=== PATIENT | male | born 1955 | race Hispanic/Latino ===

== ENCOUNTER 2018-06-07 18:22 | Inpatient (IN) | payer BC, MEDICARE ==
[2018-06-07] MEDS ORDERED: Vancomycin 1 GM 1 GM/250 ML BAG IV STA (19:31)
[2018-06-07] MEDS ORDERED: Cefepime IV 1 gm in Dextrose 1 GM/50 ML BAG IVPB STA (19:32)
[2018-06-07 19:53] LABS: BASO % 0.8 % (0.0-2.0); EOS # 0.7 K/uL (0.0-0.7); EOS % 11.1 % (0.0-4.0); HEMOGLOBIN 14.2 g/dL (12.0-18.0); LYMPH # 1.9 K/uL (1.0-4.3); LYMPH % 31.4 % (20.0-40.0); MEAN CELL VOLUME 92.7 fL (80.0-94.0); MEAN CORPUSCULAR HEMOGLOBIN 31.8 pg (27.0-31.0); MEAN CORPUSCULAR HGB CONC 34.3 g/dL (33.0-37.0); MEAN PLATELET VOLUME 8.9 fL (7.2-11.7); MONO # 0.6 K/uL (0.0-0.8); NEUT # 2.9 K/uL (1.8-7.0); NEUT % 47.7 % (50.0-75.0); NRBC % 0.3 % (0.0-2.0); RBC 4.45 Mil/uL (4.40-5.90); RED CELL DISTRIBUTION WIDTH 13.1 % (11.5-14.5); WHITE BLOOD COUNT 6.1 K/uL (4.8-10.8)
[2018-06-07] MEDS ORDERED: Vancomycin 1 GM 1 GM/250 ML BAG IVPB ONE (20:03)
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
[2018-06-07 20:06] LABS: ALB/GLOB RATIO 1.6 (1.0-2.1); ALBUMIN 3.9 g/dL (3.5-5.0); ALT/SGPT 137 U/L (21-72); AST/SGOT 93 U/L (17-59); BLOOD UREA NITROGEN 12 mg/dL (9-20); GFR NON-AFRICAN AMERICAN > 60
[2018-06-07 20:07] LABS: VENOUS BLOOD GAS PCO2 44 mmHg (40-60); VENOUS BLOOD GAS PO2 52 mm/Hg (30-55)
[2018-06-08] MEDS: Cefepime IV 1 gm in Dextrose 1 GM/50 ML BAG IVPB SCH ×2 (09:03→21:42)
[2018-06-08] MEDS: Enoxaparin 40 mg Syringe SC SCH (09:15)
[2018-06-08] MEDS ORDERED: TRAMADOL PO SCH (10:00)
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
--- NOTE | 2018-06-08 12:29 | CP.PCM.HP ---
Past Patient History - Past Medical History & Family History Past Medical History?: Yes - Past Social History Smoking Status: Current Some Days Smoker - MUSCULOSKELETAL/RHEUMATOLOGICAL Hx Back Pain: Yes Hx Falls: No - GASTROINTESTINAL Hx Fatty Liver Disease: Yes - PSYCHIATRIC Hx Substance Use: No - SURGICAL HISTORY Hx Surgeries: Yes Hx Orthopedic Surgery: Yes Other/Comment: knees, trina - ANESTHESIA Hx Anesthesia: Yes Hx Anesthesia Reactions: No Meds Allergies/Adverse Reactions: Allergies Allergy/AdvReac Type Severity Reaction Status Date / Time No Known Allergies Allergy Verified 06/07/18 18:31 Physical Exam - Constitutional Appears: Well - Head Exam Head Exam: ATRAUMATIC, NORMAL INSPECTION, NORMOCEPHALIC - Eye Exam Eye Exam: EOMI, Normal appearance, PERRL Pupil Exam: NORMAL ACCOMODATION, PERRL - ENT Exam ENT Exam: Mucous Membranes Moist, Normal Exam - Neck Exam Neck exam: Positive for: Normal Inspection - Respiratory Exam Respiratory Exam: Decreased Breath Sounds - Cardiovascular Exam Cardiovascular Exam: REGULAR RHYTHM, +S1, +S2 - GI/Abdominal Exam GI & Abdominal Exam: Diminished Bowel Sounds, Soft - Rectal Exam Rectal Exam: Deferred Results - Vital Signs Recent Vital Signs: Last Vital Signs Temp 97.7 F 06/08/18 07:00 Pulse 75 06/08/18 07:00 Resp 20 06/08/18 07:00 BP 116/71 06/08/18 07:00 Pulse Ox 97 06/08/18 07:00 - Labs Result Diagrams: 06/07/18 19:49 06/07/18 19:49 Labs: Laboratory Results - last 24 hr 06/07/18 06/07/18 06/07/18 19:49 19:49 20:00 WBC 6.1 RBC 4.45 Hgb 14.2 Hct 41.3 MCV 92.7 MCH 31.8 H MCHC 34.3 RDW 13.1 Plt Count 141 MPV 8.9 Neut % (Auto) 47.7 L Lymph % (Auto) 31.4 [place] % (Auto) 9.0 Eos % (Auto) 11.1 H Baso % (Auto) 0.8 Neut # (Auto) 2.9 Lymph # (Auto) 1.9 [place] # (Auto) 0.6 Eos # (Auto) 0.7 Baso # (Auto) 0.0 ESR 2 pO2 52 VBG pH 7.40 VBG pCO2 44 VBG HCO3 26.2 VBG Total CO2 28.7 H VBG O2 Sat (Calc) 90.6 H VBG Base Excess 2.0 VBG Potassium 4.0 Glucose 100 Lactate 1.1 Sodium 135 135.0 Potassium 4.1 Chloride 102 104.0 Carbon Dioxide 28 Anion Gap 10 BUN 12 Creatinine 0.6 L Est GFR ( Amer) > 60 Est GFR (Non-Af Amer) > 60 Random Glucose 106 Calcium 9.0 Total Bilirubin 0.3 AST 93 H ALT 137 H Alkaline Phosphatase 69 Total Protein 6.4 Albumin 3.9 Globulin 2.5 Albumin/Globulin Ratio 1.6 Venous Blood Potassium 4.0
--- NOTE | 2018-06-08 12:42 | RAD ---
PROCEDURE: Radiographs of the right forearm. HISTORY: RIGHT FOREARM CELLULITIS, R/O GAS COMPARISON: None available. TECHNIQUE: Frontal and lateral views obtained. FINDINGS: BONES: No acute displaced fracture. JOINT SPACES: No dislocation. OTHER FINDINGS: Soft tissue swelling. No evidence of radiopaque foreign body. IMPRESSION: Soft tissue swelling.
[2018-06-09] MEDS: Enoxaparin 40 mg Syringe SC SCH (10:07)
[2018-06-09] MEDS: Cefepime IV 1 gm in Dextrose 1 GM/50 ML BAG IVPB SCH ×2 (10:10→21:05)
--- NOTE | 2018-06-09 16:03 | CP.PCM.PN ---
Subjective - Date & Time of Evaluation Date of Evaluation: 06/09/18 Time of Evaluation: 10:15 - Subjective Subjective: clinically same Objective - Vital Signs/Intake and Output Vital Signs (last 24 hours): Temp Pulse Resp BP Pulse Ox 97.9 F 67 20 135/86 96 06/09/18 07:00 06/09/18 07:00 06/09/18 07:00 06/09/18 07:00 06/09/18 07:00 - Medications Medications: Current Medications Enoxaparin Sodium (Lovenox) 40 mg SC DAILY [facility] Last Admin: 06/09/18 10:07 Dose: 40 mg Gabapentin (Neurontin) 600 mg PO Q8 [facility] Last Admin: 06/09/18 13:47 Dose: 600 mg Cefepime HCl (Maxipime Iv 1 Gm Premix) 1 gm in 50 mls @ 100 mls/hr IVPB Q12H [facility]; Protocol Last Admin: 06/09/18 10:10 Dose: 100 mls/hr Vancomycin HCl 1,000 mg/ (Sodium Chloride) 250 mls @ 166.6 mls/hr IVPB Q12H [facility]; Protocol Last Admin: 06/09/18 10:00 Dose: 166.6 mls/hr Mupirocin (Bactroban Ointment) 1 gm TOP BID [facility] Last Admin: 06/09/18 10:08 Dose: 1 appl Pantoprazole Sodium (Protonix Inj) 40 mg IVP DAILY [facility] Last Admin: 06/09/18 10:06 Dose: 40 mg Tramadol HCl (Ultram) 100 mg PO Q8 [facility] Last Admin: 06/09/18 13:47 Dose: 100 mg - Labs Labs: 06/07/18 19:49 06/07/18 19:49
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
--- NOTE | 2018-06-10 21:17 | CP.PCM.PN ---
Subjective - Date & Time of Evaluation Date of Evaluation: 06/10/18 Time of Evaluation: 10:15 - Subjective Subjective: clinically same Objective - Vital Signs/Intake and Output Vital Signs (last 24 hours): Temp Pulse Resp BP Pulse Ox 97.8 F 80 20 143/80 95 06/10/18 15:21 06/10/18 15:21 06/10/18 15:21 06/10/18 15:21 06/10/18 15:21 Intake and Output: 06/10/18 06/11/18 18:59 06:59 Intake Total 600 Balance 600 - Medications Medications: Current Medications Enoxaparin Sodium (Lovenox) 40 mg SC DAILY [facility] Last Admin: 06/09/18 10:07 Dose: 40 mg Gabapentin (Neurontin) 600 mg PO Q8 [facility] Last Admin: 06/10/18 06:18 Dose: 600 mg Cefepime HCl (Maxipime Iv 1 Gm Premix) 1 gm in 50 mls @ 100 mls/hr IVPB Q12H [facility]; Protocol Last Admin: 06/09/18 21:05 Dose: 100 mls/hr Vancomycin HCl 1,000 mg/ (Sodium Chloride) 250 mls @ 166.6 mls/hr IVPB Q12H [facility]; Protocol Last Admin: 06/09/18 21:06 Dose: 166.6 mls/hr Mupirocin (Bactroban Ointment) 1 gm TOP BID [facility] Last Admin: 06/10/18 18:12 Dose: 1 appl Pantoprazole Sodium (Protonix Inj) 40 mg IVP DAILY [facility] Last Admin: 06/09/18 10:06 Dose: 40 mg Tramadol HCl (Ultram) 100 mg PO Q8 [facility] Last Admin: 06/10/18 06:18 Dose: 100 mg - Labs Labs: 06/07/18 19:49 06/07/18 19:49
[2018-06-11 07:16] LABS: BASO % 0.7 % (0.0-2.0); EOS # 0.6 K/uL (0.0-0.7); EOS % 12.2 % (0.0-4.0); HEMOGLOBIN 13.8 g/dL (12.0-18.0); LYMPH # 1.8 K/uL (1.0-4.3); LYMPH % 35.3 % (20.0-40.0); MEAN CORPUSCULAR HGB CONC 34.7 g/dL (33.0-37.0); MEAN PLATELET VOLUME 9.4 fL (7.2-11.7); MONO # 0.5 K/uL (0.0-0.8); MONO % 9.6 % (0.0-10.0); NEUT # 2.2 K/uL (1.8-7.0); NEUT % 42.2 % (50.0-75.0); NRBC % 0.1 % (0.0-2.0); RBC 4.2 Mil/uL (4.40-5.90); RED CELL DISTRIBUTION WIDTH 13.1 % (11.5-14.5); WHITE BLOOD COUNT 5.1 K/uL (4.8-10.8)
[2018-06-11 07:23] LABS: MEAN CELL VOLUME 94.1 fL (80.0-94.0)
[2018-06-11 07:31] LABS: VANCOMYCIN TROUGH 7.8 ug/mL (5.0-10.0)
[2018-06-11 07:37] LABS: ALB/GLOB RATIO 1.4 (1.0-2.1); ALBUMIN 3.8 g/dL (3.5-5.0); ALT/SGPT 129 U/L (21-72); AST/SGOT 71 U/L (17-59); BLOOD UREA NITROGEN 11 mg/dL (9-20); CALCIUM 8.5 mg/dl (8.6-10.4); GFR NON-AFRICAN AMERICAN > 60
[2018-06-11 08:03] LABS: HEPATITIS B SURFACE AG Negative (NEGATIVE)
[2018-06-11 08:07] LABS: HIV 1&2 ANTIBODY NEGATIVE (NEGATIVE)
[2018-06-11 08:09] LABS: HEPATITIS A IGM NEGATIVE (NEGATIVE); HEPATITIS B CORE AB NEGATIVE (NEGATIVE)
[2018-06-11 08:20] LABS: HEPATITIS C ANTIBODY NEGATIVE (NEGATIVE)
[2018-06-11] MEDS: Cefepime IV 1 gm in Dextrose 1 GM/50 ML BAG IVPB SCH ×2 (09:13→21:33)
[2018-06-11] MEDS: Enoxaparin 40 mg Syringe SC SCH (09:14)
[2018-06-11] MEDS: SILVASORB ANTIMICROBIAL WOUND GEL TOP SCH (11:24)
--- NOTE | 2018-06-11 13:49 | CP.PCM.PN ---
Subjective - Date & Time of Evaluation Date of Evaluation: 06/11/18 Time of Evaluation: 11:00 - Subjective Subjective: clinically same Objective - Vital Signs/Intake and Output Vital Signs (last 24 hours): Temp Pulse Resp BP Pulse Ox 97.9 F 70 20 132/77 94 L 06/11/18 07:10 06/11/18 07:10 06/11/18 07:10 06/11/18 07:10 06/11/18 07:10 Intake and Output: 06/11/18 06/11/18 06:59 18:59 Intake Total 820 Balance 820 - Medications Medications: Current Medications Enoxaparin Sodium (Lovenox) 40 mg SC DAILY [facility] Last Admin: 06/11/18 09:14 Dose: 40 mg Gabapentin (Neurontin) 600 mg PO Q8 [facility] Last Admin: 06/11/18 13:27 Dose: 600 mg Cefepime HCl (Maxipime Iv 1 Gm Premix) 1 gm in 50 mls @ 100 mls/hr IVPB Q12H [facility]; Protocol Last Admin: 06/11/18 09:13 Dose: 100 mls/hr Vancomycin HCl 1,000 mg/ (Sodium Chloride) 250 mls @ 166.6 mls/hr IVPB Q12H [facility]; Protocol Last Admin: 06/11/18 09:13 Dose: 166.6 mls/hr Pantoprazole Sodium (Protonix Inj) 40 mg IVP DAILY [facility] Last Admin: 06/11/18 09:14 Dose: 40 mg Tramadol HCl (Ultram) 100 mg PO Q8 [facility] Last Admin: 06/11/18 13:27 Dose: 100 mg - Labs Labs: 06/11/18 06:58 06/11/18 06:58
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
[2018-06-12] MEDS: Cefepime IV 1 gm in Dextrose 1 GM/50 ML BAG IVPB SCH ×2 (08:26→20:50)
[2018-06-12] MEDS: SILVASORB ANTIMICROBIAL WOUND GEL TOP SCH (10:48)
[2018-06-12] MEDS: Enoxaparin 40 mg Syringe SC SCH (10:48)
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
[2018-06-12 17:48] VITALS: RESP 20
--- NOTE | 2018-06-12 21:17 | CP.PCM.PN ---
Subjective - Date & Time of Evaluation Date of Evaluation: 06/12/18 Time of Evaluation: 10:45 - Subjective Subjective: clinically same Objective - Vital Signs/Intake and Output Vital Signs (last 24 hours): Temp Pulse Resp BP Pulse Ox 98.1 F 67 20 150/84 96 06/12/18 15:00 06/12/18 15:00 06/12/18 15:00 06/12/18 15:00 06/12/18 15:00 - Medications Medications: Current Medications Enoxaparin Sodium (Lovenox) 40 mg SC DAILY [facility] Last Admin: 06/12/18 10:48 Dose: 40 mg Fluocinonide (Lidex 0.05% Cream) 0 gm TOP QID [facility] Last Admin: 06/12/18 20:39 Dose: Not Given Gabapentin (Neurontin) 600 mg PO Q8 [facility] Last Admin: 06/12/18 21:01 Dose: 600 mg Cefepime HCl (Maxipime Iv 1 Gm Premix) 1 gm in 50 mls @ 100 mls/hr IVPB Q12H [facility]IE; Protocol Last Admin: 06/12/18 20:50 Dose: 100 mls/hr Vancomycin HCl 1,000 mg/ (Sodium Chloride) 250 mls @ 166.6 mls/hr IVPB Q12H [facility]; Protocol Last Admin: 06/12/18 20:50 Dose: 166.6 mls/hr Pantoprazole Sodium (Protonix Inj) 40 mg IVP DAILY [facility] Last Admin: 06/12/18 10:48 Dose: 40 mg Tramadol HCl (Ultram) 100 mg PO Q8 [facility] Last Admin: 06/12/18 21:00 Dose: 100 mg - Labs Labs: 06/11/18 06:58 06/11/18 06:58
[2018-06-13 00:30] VITALS: TEMP 97.8
[2018-06-13 07:57] VITALS: BP 136/86; PULSE 64
[2018-06-14 17:03] VITALS: O2SAT 95
== END 2018-06-13 11:00 | disposition left against medical advice (07) | DRG 603 ==
LOC: C.ER 18:22 → C.9E 20:36 → C.6T 20:49
PROVIDERS: ADMIT Internal Medicine Nephrology; ATTEND Internal Medicine Nephrology
DX: L03.113 Cellulitis of right upper limb (principal); T22.011A Burn of unspecified degree of right forearm, initial encounter; W22.11XA Striking against or struck by driver side automobile airbag, initial encounter; A46 Erysipelas; V89.2XXA Person injured in unspecified motor-vehicle accident, traffic, initial encounter; Y92.410 Unspecified street and highway as the place of occurrence of the external cause; F17.210 Nicotine dependence, cigarettes, uncomplicated